=== PATIENT | female | born 1990 | race Two or more races ===

== ENCOUNTER 2019-01-30 18:07 | Emergency (ER) | payer MEDICAID ==
[2019-01-30] MEDS: DEXAMETHASONE 10 MG/ML 1 ML INJ IM (22:53)
[2019-01-30] MEDS: KETOROLAC 30 MG INJ IM (22:53)
== END 2019-01-30 23:03 | disposition home or self-care (01) ==
LOC: FTE 18:07
DX: S09.90XA Unspecified injury of head, initial encounter (principal); W22.8XXA Striking against or struck by other objects, initial encounter; Y92.009 Unspecified place in unspecified non-institutional (private) residence as the place of occurrence of the external cause
CPT/HCPCS: 81025; 96372; 99284-25